=== PATIENT | female | born 1965 | race American Indian/Alaskan Native ===

== ENCOUNTER 2016-05-02 18:18 | Emergency (ER) | payer OTHER ==
[2016-05-02] MEDS ORDERED: CATAPRES PO ONE (19:30)
[2016-05-02] MEDS ORDERED: NORCO 5/325 PO ONE (19:31)
[2016-05-02 22:48] VITALS: BP 121/75
--- NOTE | 2016-05-02 23:18 | XRay Report ---
FINAL REPORT PROCEDURE: Right foot. TECHNIQUE: Three views. HISTORY: Foot injury with pain. COMPARISON: No prior studies are available for comparison. FINDINGS: The bones appear intact without fracture or dislocation. The joint spaces appear normal. The soft tissues are unremarkable. IMPRESSION: No significant abnormality.
--- NOTE | 2016-05-02 23:27 | Emergency Department Report ---
HPI - General Chief Complaint: Extremity Injury, Lower Time Seen by Provider: 05/02/16 23:19 - HPI HPI: This is a 51-year-old Afro-[place] female presents to the emergency department who complains of right foot pain after she slipped on some water at home while sweeping and twisted her foot. She is unable to bear weight secondary to the pain and also complains of swelling. She has not taken anything for symptoms prior to presentation. Patient also presents with elevated blood pressure through triage and has a previous history of hypertension but has not been on medications for the past year. She used to see Dr. Forman for primary care but he has "closed his office." She has a history of hypertension, diabetes, asthma , GERD, migraines. No recent travel or sick contacts at home. ED Past Medical Hx - Past Medical History Hx Hypertension: Yes (FOR 9 YRS) Hx Diabetes: Yes (FOR 9 YRS) Hx GERD: Yes Hx Arthritis: Yes Hx Headaches / Migraines: Yes (MIGRAINES) Hx Asthma: Yes Hx COPD: Yes - Surgical History Additional Surgical History: partial hysterectomy - Social History Smoking Status: Never Smoker Substance Use Type: None - Medications Home Medications: Home Medications Medication Instructions Recorded Confirmed Last Taken Type ALBUTEROL Inhaler [ProAir HFA 1 puff IH PRN PRN 08/18/13 06/26/14 Unknown History Inhaler] Budesoni/Formotero 160-4.5(Nf) 1 puff IH PRN PRN 08/18/13 06/26/14 08/16/13 20: 00 History [Symbicort 160-4.5 (Nf)] metFORMIN [Glucophage] 1,000 mg PO BID 08/18/13 06/26/14 08/16/13 21:00 History Clindamycin [Clindamycin CAP] 300 mg PO Q8H #30 cap 08/20/13 06/26/14 Unknown Rx ALBUTEROL NEB's [Proventil 0.083%] 2.5 mg IH TID PRN 05/28/14 06/26/14 Unknown History Beclomethasone Dipropionate [Qvar 2 inhalation IH BID 05/28/14 06/26/14 Unknown History 80MCG] HYDROcodone/APAP 5-325 [Sunset 1 each PO Q6HR PRN #16 tablet 05/02/16 Unknown Rx 5/325] Losartan/Hydrochlorothiazide 1 tab PO QDAY #30 tablet 05/02/16 Unknown Rx [Hyzaar 100-12.5 TAB] ED Review of Systems ROS: Stated complaint: POSS BROKEN RT FOOT Other details as noted in HPI Comment: All other systems reviewed and negative Constitutional: denies: chills, fever Eyes: denies: eye pain, eye discharge, vision change ENT: denies: ear pain, throat pain Respiratory: denies: cough, shortness of breath, wheezing Cardiovascular: edema. denies: chest pain Gastrointestinal: denies: abdominal pain, nausea, diarrhea Genitourinary: denies: urgency, dysuria, discharge Musculoskeletal: joint swelling, arthralgia. denies: back pain Skin: denies: rash, lesions Neurological: denies: headache, weakness, paresthesias Physical Exam - Physical Exam Vital Signs: Vital Signs 05/02/16 05/02/16 05/02/16 19:07 19:37 19:38 Temperature 98.8 F Pulse Rate 86 86 Respiratory 18 18 Rate Blood Pressure 192/82 192/82 O2 Sat by Pulse 100 Oximetry 05/02/16 22:46 Temperature 98.9 F Pulse Rate 68 Respiratory 16 Rate Blood Pressure 121/75 O2 Sat by Pulse 100 Oximetry Physical Exam: GENERAL: The patient is well-developed well-nourished. HEENT: Normocephalic. Atraumatic. Extraocular motions are intact. Patient has moist mucous membranes. Pupils equal reactive to light bilaterally. NECK: Supple. Trachea is midline. CHEST/LUNGS: Clear to auscultation. There is no respiratory distress noted. HEART/CARDIOVASCULAR: Regular. There is no tachycardia. There is no gallop rub or murmur. ABDOMEN: Abdomen is soft, nontender. Patient has normal bowel sounds. There is no abdominal distention. SKIN: There is nonpitting swelling to the entire right foot. NEURO: The patient is awake, alert, and oriented. The patient is cooperative. The patient has no focal neurologic deficits. The patient has normal speech. MUSCULOSKELETAL: Tenderness to palpation to the dorsum of the right foot. No obvious deformity. There is decreased range of motion and inability to bear weight on the right foot secondary to discomfort. Pedal pulses +2 over 4 bilaterally. Cap refill less than 2 seconds. ED Course Vital Signs 05/02/16 05/02/16 05/02/16 19:07 19:37 19:38 Temperature 98.8 F Pulse Rate 86 86 Respiratory 18 18 Rate Blood Pressure 192/82 192/82 O2 Sat by Pulse 100 Oximetry 05/02/16 22:46 Temperature 98.9 F Pulse Rate 68 Respiratory 16 Rate Blood Pressure 121/75 O2 Sat by Pulse 100 Oximetry ED Medical Decision Making - Radiology Data Radiology results: image reviewed interpreted by me: X-ray of the right foot shows some soft tissue swelling as well as a small avulsed piece of bone between the midfoot and the talus concerning for a fracture but is not seen on the other views - Medical Decision Making 51 year-old female presents to the emergency department with right foot pain and swelling after slipping at home and twisting the foot. She is now unable to bear weight. X-ray was done that showed a small bone avulsion on the dorsum between the mid foot and the talus that was concerning for me for fracture. However radiology read it as no acute abnormalities. Nonetheless the patient will be placed in a splint, given crutches, orthopedic referral and some pain medication. She will use rest, ice, compression and elevation. Patient presented with elevated blood pressure and does have a history of hypertension in the past. She was given a dose of Catapres and upon reevaluation her discomfort down to a normal level. Patient will be restarted on her previous blood pressure medications and has been encouraged to keep a blood pressure log. She will return to the ER with any worsening of her symptoms or any acute distress. - Differential Diagnosis fracture, contusion, sprain, strain Critical Care Time: No Critical care attestation.: If time is entered above; I have spent that time in minutes in the direct care of this critically ill patient, excluding procedure time. ED Disposition Clinical Impression: Foot fracture, right Qualifiers: Encounter type: initial encounter Fracture type: closed Qualified Code(s): S92.901A - Unspecified fracture of right foot, initial encounter for closed fracture Hypertension Qualifiers: Hypertension type: essential hypertension Qualified Code(s): I10 - Essential ( primary) hypertension Disposition: DISCHARGED TO HOME OR SELFCARE Is pt being admited?: No Condition: Good Instructions: Foot Fracture in Adults (ED), Hypertension (ED) Additional Instructions: Stay in the splint and remain nonweightbearing until follow-up with the orthopedist. I'm giving her a referral for a local orthopedist, Dr. Escobar, to follow up regarding her foot. Use rest, ice, compression and elevation. The eye should not be directly against the skin. I restarted you on your blood pressure medications. Keep a blood pressure log. Return to the emergency department with any worsening of her symptoms or any acute distress. You've been prescribed a medication that is sedating. Therefore this medication cannot be mixed with alcohol, or taken prior to driving, working, or being responsible for children. Prescriptions: HYDROcodone/APAP 5-325 [Sunset 5/325] 1 each PO Q6HR PRN #16 tablet PRN Reason: Pain Losartan/Hydrochlorothiazide [Hyzaar 100-12.5 TAB] 1 tab PO QDAY #30 tablet Referrals: CHIQUITA RAMIREZ [Other] - 3-5 Days TOMMY ESCOBAR MD [Staff Physician] - 3-5 Days Forms: Work/School Release Form(ED) Time of Disposition: 23:28
== END 2016-05-02 23:45 | disposition home or self-care (01) ==
LOC: ED 18:18
DX: S92.901A Unspecified fracture of right foot, initial encounter for closed fracture (principal); I10 Essential (primary) hypertension; E11.9 Type 2 diabetes mellitus without complications; K21.9 Gastro-esophageal reflux disease without esophagitis; M19.90 Unspecified osteoarthritis, unspecified site; G43.909 Migraine, unspecified, not intractable, without status migrainosus; J44.9 Chronic obstructive pulmonary disease, unspecified; J45.909 Unspecified asthma, uncomplicated; Z90.711 Acquired absence of uterus with remaining cervical stump; X58.XXXA Exposure to other specified factors, initial encounter; Y93.89 Activity, other specified; Y99.8 Other external cause status; Y92.89 Other specified places as the place of occurrence of the external cause
CPT/HCPCS: 82962